=== PATIENT | female | born 1980 | race Caucasian/White ===

== ENCOUNTER 2019-02-05 17:56 | Emergency (ER) | payer MEDICARE, MEDICAID ==
[~2019-02-05] VITALS: Ht 162.6 cm; Wt 63.6 kg
[2019-02-05 18:00] VITALS: Ht 162.6 cm; Wt 63.6 kg
[2019-02-05] MEDS ORDERED: AMBIEN5 MG PO (18:11)
[2019-02-05] MEDS ORDERED: LITHOBID 300 M300 MG (18:13)
[2019-02-05] MEDS ORDERED: PROZAC20 MG (18:14)
[2019-02-05 19:28] LABS: APPEARANCE CLEAR (CLEAR); BILIRUBIN NEGATIVE (NEGATIVE); COLOR YELLOW (YELLOW); GLUCOSE NEGATIVE (NEGATIVE); KETONE NEGATIVE (NEGATIVE); NITRITE NEGATIVE (NEGATIVE); PROTEIN NEGATIVE (NEGATIVE); SPECIFIC GRAVITY 1.015 (1.005-1.020); UROBILINOGEN NORMAL (NORMAL)
[2019-02-05 19:29] LABS: BACTERIA FEW /hpf (NONE SEEN); EPITHELIAL CELLS 0-5 /hpf (0-5); RED CELLS - URINE 0-5 /hpf (0-5)
[2019-02-05 19:34] LABS: HCG URINE NEGATIVE (NEGATIVE)
[2019-02-05] MEDS ORDERED: VOLTAREN75 MG PO (19:58)
[2019-02-05 20:17] VITALS: BP 125/74
== END 2019-02-05 20:17 | disposition home or self-care (01) ==
LOC: D.ER 17:56
PROVIDERS: Family Medicine
DX: R51 Headache (principal); Y04.2XXA Assault by strike against or bumped into by another person, initial encounter; Y93.89 Activity, other specified; Y92.019 Unspecified place in single-family (private) house as the place of occurrence of the external cause

== ENCOUNTER → 2019-10-03 10:00 | Outpatient (CLI) | payer MEDICARE ==
[2019-02-05 18:00] VITALS: BMI 24.0
[~2019-10-03 10:00] MED LIST: AMBIEN5 MG PO; LITHOBID 300 M300 MG; PROZAC20 MG; VOLTAREN75 MG PO
== END | disposition home or self-care (01) ==
LOC: D.MAMMO 08-21 15:00
PROVIDERS: ATTEND Family Medicine
DX: N63.11 Unspecified lump in the right breast, upper outer quadrant (principal)

== ENCOUNTER 2019-12-11 19:19 | Inpatient (IN) | payer MEDICARE ==
[~2019-12-11] VITALS: Ht 162.6 cm; Wt 77.3 kg
--- NOTE | ~2019-12-11 | OP ---
PATIENT NAME: JANNIE KULKARNI MEDICAL RECORD: [id number] :80 LOCATION:[id number] ADMISSION DATE:12/11/19 SURGEON: MARIUSZ SABILLON MD DATE OF OPERATION: 12/12/2019 PREOPERATIVE DIAGNOSES: 1. Right pelvic mass. 2. Abdominal tenderness. 3. Suspect torsion. POSTOPERATIVE DIAGNOSES: 1. Subcutaneous and subfascial masses or lesions. 2. Hemorrhagic cyst. 3. Torsion. PROCEDURES: 1. Diagnostic laparoscopy. 2. Laparoscopic right salpingo-oophorectomy. 3. Exploratory laparotomy. SURGEON: Mariusz Sabillon MD RACE [employer] SPORTS BOOK WRITER: Félix Camacho. ANESTHESIOLOGIST: Dr. Valera ANESTHETIC: General. FINDINGS: At the time of laparoscopy, approximately 8-9 cm hemorrhagic cyst is encountered, rotated 180 degrees on the infundibulopelvic ligament. Portions of the ovary are dusky. There is a small amount of hemoperitoneum. At the time of ex-lap, a firm nodule approximately 2.5 cm containing what appears to be old hemorrhagic contents is in the subcutaneous layer attached to the fascia. There is also a small portion underneath the fascia in the midline. SPECIMENS REMOVED: 1. Pelvic washings. 2. Subcutaneous biopsy. 3. Subfascial biopsy. 4. Right ovary with mass. ESTIMATED BLOOD LOSS: Less than or equal to 100 cc. FLUIDS: 1400 cc. URINE OUTPUT: 150 cc of clear urine. COMPLICATIONS: None. DRAIN: Marshall to gravity discontinued in the PACU. INDICATIONS: The patient is a 39-year-old female with a known history of an ovarian cyst. The patient had a RHIANNON test that shows elevation for premenopausal possibility of malignancy. The patient has been scheduled at [facility]. The patient was in a normal state of health until yesterday where intense OPERATIVE REPORT [id number] JANNIE KULKARNI abdominal pain began associated with nausea. The patient reported this intense pelvic and abdominal pain was right-sided and occurred with movements. The patient was admitted for pain control. The patient did have ovarian blood flow at the time of admission. The patient consented for diagnostic laparoscopy, possible right salpingo-oophorectomy and any indicated procedure. The patient understands that the diagnosis of malignancy is returned. Staging will have to be done at the university setting. DESCRIPTION OF PROCEDURE: After informed consent was assured, the patient was taken to the operating room where anesthetic was obtained. The patient is now prepped and draped in the usual sterile fashion. An incision was made at the umbilicus to accommodate a 5-mm trocar, which was inserted. Pneumoperitoneum was developed. Accessory ports now placed in the midline and right lower quadrant. The midline port is an 11-mm port. Right lower quadrant port is 5-mm port. With the patient in Trendelenburg,the bowel swept free of the pelvis. A small amount of hemoperitoneum is noted. The ovary was inspected and found to be rotated 180 degrees on its pedicle. Through the midline port, a grasper was inserted and the ovary held at the infundibulopelvic ligament. Using the Lailaihuiunderbeat coagulation cutter, the IP is now compressed, coagulated, and . The dissection was carried out posterior to the ovary. Once the ovary was freed, it was placed in the cul-de-sac. A mini laparotomy was now performed. Using a scalpel, skin was incised. Upon entering the skin, there was area of retraction in the midline and there is a firm nodule beneath this. This was removed with a scalpel. The fascia was opened in the midline and dissected free, superiorly and inferiorly. Rectus bellies were now in the midline. The bowel was held away from the pelvis using a laparotomy sponge and the mass was identified, grasped with Allis clamps and removed. The pelvis was irrigated and the irrigant removed, sending the specimen for cytology. The rectus bellies were reapproximated in the midline with the loose Vicryl stitch. The fascia was now closed with a running stitch of 0 Vicryl. Subcutaneous tissues inspected. Bleeding vessels cauterized and the skin reapproximated with a subcuticular stitch. All port sites are closed with a subcuticular stitch. Steri-Strips and pressure dressing applied. TRANSINT:[id number] Voice Confirmation ID: [id number] DOCUMENT ID: [id number] MARIUSZ SABILLON MD CC: [id number] DICTATION DATE: 12/12/19 1141 ASSISTANT PROFESSOR OF GEOGRAPHY: 12/12/19 1225 ADM IN [facility] [address] [place] [address]
[2019-12-11] MEDS ORDERED: OMEPRAZOLE40 MG PO (19:37)
[2019-12-11] MEDS ORDERED: CATAPRES0.1 MG PO (19:57)
[2019-12-11 19:58] VITALS: BP 116/62; Ht 162.6 cm; Wt 77.3 kg
--- NOTE | 2019-12-11 20:00 | NUR ---
PATIENT ARRIVED FROM ER VIA WHEELCHAIR WITH FAMILY, TO ROOM 1276 WITH ADMISSION ORDERS FROM DR SABILLON.
--- NOTE | 2019-12-11 20:05 | NUR ---
20 GAUGE IV STARTED TO RIGHT HAND, IV FLUSHED WITH 10ML NS WITHOUT DIFFICULTY.
--- NOTE | 2019-12-11 20:13 | NUR ---
MEDICATION GIVEN AT THIS TIME SEE EMAR
[2019-12-11] MEDS ORDERED: KLONOPIN0.5 MG PO (20:24)
--- NOTE | 2019-12-11 20:30 | NUR ---
DR SABILLON CALLED AND GIVEN UPDATE ON PATIENT WHEEZING AND REQUEST FOR HOME MEDS. NEW ORDERS NOTED FOR ATIVAN 1MG SLOW IVP, 14MG TRANSDERMAL NICOTINE PATCH AND ALBUTEROL UPDRAFTS PER RT.
--- NOTE | 2019-12-11 20:58 | NUR ---
US COMPLETED, DR SABILLON CALLED AND GIVEN UNOFFICIAL RESULTS OF POSITIVE BLOOD FLOW TO THE RIGHT OVARY. NEW ORDERS NOTED TO CONSENT PATIENT FOR A DIAGNOSTIC LAPAROSCOPY FOR THE AM.
--- NOTE | 2019-12-11 21:16 | NUR ---
ATIVAN AND NICOTINE PATCH ADMINISTERED, SEE EMAR
--- NOTE | 2019-12-11 23:46 | NUR ---
PT RESTING IN BED, STATES THAT SHE IS STARTING TO HURT AGAIN AND NEEDS PAIN MEDICATION.
[2019-12-12] VITALS (9 sets, daily range): BP systolic 101–116; BP diastolic 55–70
--- NOTE | 2019-12-12 01:53 | NUR ---
PT RESTING QUIETLY WITH EYES CLOSED, RESPIRATIONS EVEN AND NON LABORED. NO DISTRESS NOTED. WILL CONTINUE TO MONITOR.
--- NOTE | 2019-12-12 03:39 | NUR ---
new bag of iv fluids hung and infusing per md orders, see emar. pt sleeping with even respirations, no needs identified. will continue to monitor.
--- NOTE | 2019-12-12 07:50 | NUR ---
dr. schreiber on unit.
--- NOTE | 2019-12-12 08:23 | NUR ---
RT notified to come and evaluate pt for updraft prior to surgery.
--- NOTE | 2019-12-12 12:51 | NUR ---
REC'D BACK TO ROOM FROM PACU, DROWSY BUT EASILY AROUSES TO VOICE AND ANSWERS APPROPRIATELY. RESP REGULAR AND UNLABORED, NO S/S OF DISTRESS. VSS. C/O PAIN 10/10, EDUCATED ON PAIN SCALE THEN STATES PAIN IS 6-7/10, REQUESTS ADDITIONAL PAIN MEDICATION. BREATH SOUNDS CLEAR AND EQUAL. BOWEL SOUNDS PRESENT AND HYPOACTIVE X4 QUADRANTS. DENIES NAUSEA AND REQUEST SOMETHING TO DRINK. DRSG TO LOWER TRANSVERSE ABD INCISION WITH BULKY DRSG NOTED, CLEAN DRY AND INTACT. SCD'S ON. INSTRUCTED ON INCENTIVE SPIROMETER WITH RETURN DEMONSTRATION. ICE PACK PROVIDED. R HAND PIV NOTED, NO S/S OF DISTRESS NOTED. BED IN LOW POSITION WITH SRUP X2. CALL LIGHT ANDP PHONE WITHIN REACH. WILL CONTINUE TO MONITOR.
--- NOTE | 2019-12-12 13:16 | NUR ---
C/O ABD AND INCISIONAL DISCOMFORT 6-04/03, MEDS GIVEN PER EMAR. PT REQUESTS TO HAVE NAUSEA MEDS WITH PAIN MEDS D/T PAIN MEDS OFTEN MAKING HER NAUSEATED, ZOFRAN GIVEN ALSO PER ORDER.
--- NOTE | 2019-12-12 13:38 | NUR ---
PAIN REASSESSMENT COMPLETED, RESTING QUIETLY WITH EYES CLOSED, RESP REGULAR AND UNLABORED, NO S/S OF DISTRESS NOTED. SCD'S ON BLE. BED IN LOW POSITION WITH SRUP X2. CALL LIGHT AND PHONE WITHIN REACH. WILL CONTINUE TO MONITOR.
--- NOTE | 2019-12-12 13:44 | NUR ---
CONTINUES TO DENY NAUSEA. REQUESTS SPRITE AND PROVIDED. PULSE OX MOVED TO TOES, O2 SAT READING 95-98%. WILL CONTINUE TO MONITOR.
--- NOTE | 2019-12-12 14:52 | NUR ---
SPOKE WITH DR. SABILLON REGARDING RESTARTING HOME MEDS. ORDERS REC'D.
--- NOTE | 2019-12-12 15:34 | NUR ---
AWAKE, CONTINUES TO DENY NAUSEA, C/O ABD AND INCISIONAL DISCOMFORT. DISCUSSED PAIN MED ORDERS, REQUEST PERCOCET, 2 TABS GIVEN PER ORDER FOR C/O PAIN 03/04. INSTRUCTED ON INCENTIVE SPIROMETER USE WITH UNDERSTANDING VERBALIZED AND DEMONSTRATED X5. UP TO BR WITH STANDBY ASSIST, VOIDED 100 MLS CLEAR LIGHT YELLOW URINE. BACK TO BED, SCD'S ON BLE. BED IN LOW POSITION WITH SRUP X2. CALL LIGHT AND PHONE WITHIN REACH. WILL CONTINUE TO MONITOR.
--- NOTE | 2019-12-12 16:24 | NUR ---
PAIN REASSESSMENT COMPLETED, 02/01, CONVERSING ON CELL PHONE AND WATCHING TV. DENIES ADDITIONAL NEEDS AT THIS TIME.
--- NOTE | 2019-12-12 17:30 | NUR ---
PHARMACY NOTIFIED OF BEING UNABLE TO PULL GABAPENTIN AND BENADRYL, WILL WORK TO RESOLVE ISSUE.
--- NOTE | 2019-12-12 17:56 | NUR ---
UNABLE TO PULL GABAPENTIN AND BENADRYL D/T MALFUNCTION OF PYXIS. HYDROMORPHONE PULLED AND GIVE FOR C/O PAIN. PHARMACY CURRENTLY WORKING TO RESOLVE ISSUES.
--- NOTE | 2019-12-12 18:22 | NUR ---
GABAPENTIN AND BENADRYL GIVEN PER ORDER. PT INSTRUCTED ON MEDS AND PURPOSE AND POSSIBLE SIDE EFFECTS. INSTRUCTED TO NOTIFY RN IF ASSISTANCE TO BR IS NEEDED, VERBALIZES UNDERSTANDING.
--- NOTE | 2019-12-12 19:16 | NUR ---
RN TO PT BEDSIDE, PT STATES PAIN IS 5/10 TO INCISION SITE IN LOWER ABDOMEN, PT GIVEN SCHEDULED TORADOL 30MG IVP. PT IS UP AND AMBULATING IN ROOM, INICISON SITE IS CLEAN AND DRY. PT HAS BOWEL SOUNDS IN ALL 4 QUADRANTS, PT STATES SHE IS OUT OF BREATH, RESPIRATORY CALLED FOR PRN RESPIRATORY TREATMENT. SPO2 97-100% AT THIS TIME. PT STATES ALL OTHER NEEDS ARE MET AT THIS TIME. BED IN LOWEST POSITION, SIDE RAILS UPX2, CALL LIGHT WITHIN REACH.
--- NOTE | 2019-12-12 21:03 | NUR ---
NICOTINE PATCH 14G TO RIGHT SHOULDER, PREVIOUS NICOTINE PATCH REMOVED.
[2019-12-13 00:50] VITALS: BP 91/55
--- NOTE | 2019-12-13 03:38 | NUR ---
KLONOPIN 0.5MG PO ADMINISTERED TO PT PER MD ORDERS, PERCOCET-5 2 TABLETS PO ADMINISTERED TO PT PER MD ORDERS FOR 8/10 PAIN TO ABDOMINAL INCISION AREA.
[2019-12-13 03:42] VITALS: BP 105/53
--- NOTE | 2019-12-13 07:39 | NUR ---
VSS. C/O ABD AND INCISIONAL DISCOMFORT 05/04. TORADOL GIVEN TO R HAND PIV ORDERED AND 2 TABS PEROCET 5/325 GIVEN PER ORDER AND PT REQUEST. SHIFT ASSESSMENT COMPLETED PER FLOWSHEET. REPORTS THAT SHE IS VOIDING AND PASSING FLATUS WITHOUT DIFFICULTY, BOWEL SOUNDS REMAIN PRESENT AND ACTIVE X4 QUADRANTS. LOWER TRANSVERSE ABD INCISION REMAINS COVERED WITH BULKY DRSG, NO DRAINAGE NOTED. STERI-STRIPS REMAIN IN PLACE TO UMIBILICUS, NO DRAINAGE NOTED. REFUSES SCD'S ENCOURAGED TO AMBULATE ON UNIT. UP TO VOID, BEGINS AMBULATING ON UNIT, STEADY GAIT NOTED.
[2019-12-13 07:44] VITALS: BP 105/56
--- NOTE | 2019-12-13 08:12 | NUR ---
CONTINUES TO AMBULATE ON UNIT. REPORTS PAIN MEDS HAS DECREASED PAIN 4/10. STEADY GAIT NOTED. DENIES NEEDS.
--- NOTE | 2019-12-13 09:17 | NUR ---
DR. SABILLON AT BEDSIDE, DISCUSSING POC WITH PT AND ANSWERING QUESTIONS.
--- NOTE | 2019-12-13 10:34 | NUR ---
LAYING IN BED IN SEMI-FOWLERS POSITION. REQUESTING PAIN MEDICATION FOR PAIN 6/10, ABD AND INCISIONAL DISCOMFORT, REVIEWED PAIN MEDS AND ORDERS WITH PT, VERBALIZES UNDERSTANDING. SODA PROVIDED PER REQUEST. DENIES ADDITIONAL NEEDS. BED IN LOW POSITION WITH SRUP X2. CALL LIGHT AND PHONE WITHIN REACH. WILL CONTINUE TO MONITOR.
--- NOTE | 2019-12-13 10:53 | NUR ---
NICOTINE PATCH REPLACED. OLD PATCH DISPOSED OF PER PROTOCOL. PT INSTRUCTED ON REMOVING PATCH PRIOR TO SMOKING OR PLACING NEW PATCH. VERBALIZES UNDERSTANDING. PROZAC AND GABAPENTIN ALSO GIVEN PER ORDER.
--- NOTE | 2019-12-13 11:06 | NUR ---
C/O ABD AND INCISIONAL DISCOMFORT 7-05/04. PERCOCET 2 TABS GIVEN PER ORDER. ABD BINDER PROVIDED AND INSTRUCTED ON USE, VERBALIZES UNDERSTANDING. REINFORCED TEACHING NOT TO LEAVE BINDER ON WHEN SLEEPING OR RESTING. VERBALIZES UNDERSTNADING. CURRENTLY UP AMBULATING IN ROOM AT THIS TIME. STATES THAT SHE IS PASSING FLATUS.
--- NOTE | 2019-12-13 11:51 | NUR ---
PAIN REASSESSMENT COMPLETED, 12/02. DENIES ADDITIONAL NEEDS. BED IN LOW POSITION WITH SRUP X2. CALL LIGHT AND PHONE WITHIN REACH. WILL CONTINUE TO MONITOR.
[2019-12-13] MEDS ORDERED: GABAPENTIN300 MG PO (11:59)
[2019-12-13] MEDS ORDERED: PERCOCET 7.5/321 TAB PO (12:00)
[2019-12-13] MEDS ORDERED: MOBIC7.5 MG PO (12:01)
[2019-12-13] MEDS ORDERED: ESTRACE1 MG PO (12:01)
--- NOTE | 2019-12-13 12:53 | NUR ---
R HAND PIV D/C'D, TIP INTACT, BANDAID PLACED. DISCHARGE INSTRUCTIONS REVIEWED WITH PT AND SPOUSE, BOTH VERBALIZED UNDERSTANDING. REINFORCED TEACHING ON REMOVING NICOTINE PATCH IF SMOKING OR PRIOR TO PLACING NEW PATCH, VERBALIZES UNDERSTANDING. COPY OF D/C INSTRUCTIONS PROVIDED. OFF UNIT IN STABLE CONDITION WITH THIS RN IN W/C TO AWAITING PRIVATE VECHILE.
== END 2019-12-13 12:53 | disposition home or self-care (01) | DRG 743 ==
LOC: D.LD 19:19
PROVIDERS: ADMIT Obstetrics & Gynecology; ATTEND Obstetrics & Gynecology
PROC: 0UT04ZZ Resection of Right Ovary, Percutaneous Endoscopic Approach (ICD-10-PCS; 2019-12-12)
PROC: 0UJH0ZZ Inspection of Vagina and Cul-de-sac, Open Approach (ICD-10-PCS; 2019-12-12)
PROC: 0UT54ZZ Resection of Right Fallopian Tube, Percutaneous Endoscopic Approach (ICD-10-PCS; principal; 2019-12-12 09:45)
DX: N83.511 Torsion of right ovary and ovarian pedicle (principal); R19.09 Other intra-abdominal and pelvic swelling, mass and lump; N83.201 Unspecified ovarian cyst, right side; Z72.0 Tobacco use

== ENCOUNTER 2020-06-20 09:48 | Emergency (ER) | payer MEDICARE ==
[~2020-06-20] VITALS: Ht 162.6 cm; Wt 90.9 kg
[~2020-06-20 09:48] MED LIST changes: +CATAPRES0.1 MG PO; +ESTRACE1 MG PO; +GABAPENTIN300 MG PO; +KLONOPIN0.5 MG PO; +MOBIC7.5 MG PO; +OMEPRAZOLE40 MG PO; +PERCOCET 7.5/321 TAB PO
[2020-06-20 09:51] VITALS: Ht 162.6 cm; Wt 90.9 kg
[2020-06-20 10:17] LABS: BASOPHILS 0.1 % (0-2); EOSINOPHILS 0.1 % (0-7); HEMATOCRIT 43.7 % (36.0-48.0); IMMATURE GRANULOCYTES 0.3 % (0-5); LYMPHOCYTES 13.9 % (15-50); MCH 31.3 pg (26.0-34.0); MCHC 34.3 g/dL (31.0-37.0); MEAN PLATELET VOLUME 8.9 fL (7.4-10.4); MONOCYTES 4.8 % (2-11); NEUTROPHILS 80.8 % (40-80); PLATELET COUNT 359 10x3/uL (130-400); RDW 14.4 % (11.5-14.5); WBC 11.5 10x3/uL (4.8-10.8)
[2020-06-20 10:22] LABS: APTT 31.5 SECONDS (22.8-39.4); INR 1.05 (0.85-1.17); PROTIME 13.7 SECONDS (11.6-15.0)
[2020-06-20 10:25] LABS: CALC OSMOLALITY 272 mosm/kg (275-300); CALCIUM 10.3 mg/dL (8.5-10.1); CARBON DIOXIDE 18.7 mmol/L (21.0-32.0); CHLORIDE - SERUM 103 mmol/L (98-107); CREATININE - SERUM 1.1 mg/dL (0.6-1.3); GLUCOSE 112 mg/dL (74-106); POTASSIUM - SERUM 3.9 mmol/L (3.5-5.1); SODIUM 135 mmol/L (136-145); UREA NITROGEN 18 mg/dL (7-18); eGFR NON AFRICAN AMERICAN 58 mL/min (90-120)
[2020-06-20 10:42] LABS: ALBUMIN 4.4 g/dL (3.4-5.0); ALKALINE PHOSPHATASE 59 U/L (30-120); ALT (SGPT) 21 U/L (10-68); BILIRUBIN - TOTAL 0.44 mg/dL (0.2-1.3); CKMB 1.7 U/L (0.0-3.6); CREATINE KINASE 92 UL (21-215); PRO BNP 76 pg/mL (0-125); PROTEIN - SERUM 8.8 g/dL (6.4-8.2)
[2020-06-20 10:43] LABS: TROPONIN-I < 0.017 ng/mL (0.000-0.060)
[2020-06-20] MEDS ORDERED: FLUTICASONE PRO16 GM NASAL (12:31)
[2020-06-20] MEDS ORDERED: ZYRTEC10 MG PO (12:31)
[2020-06-20] MEDS ORDERED: MUCINEX DM ER1 EAC1 PO (12:31)
[2020-06-20 12:47] VITALS: BP 128/89
== END 2020-06-20 12:48 | disposition home or self-care (01) ==
LOC: D.ER 09:48
PROVIDERS: Family Medicine
DX: J06.9 Acute upper respiratory infection, unspecified (principal); R05 Cough